=== PATIENT | male | born 1985 | race African-American/Black ===

== ENCOUNTER 2022-01-12 19:20 | Emergency (ER) | payer OTHER, SELFPAY ==
[2022-01-12] MEDS ORDERED: Ketorolac Tromethamine 30 MG/ML VIAL ONE (21:25)
[2022-01-12] MEDS ORDERED: Cyclobenzaprine 10 MG TAB ONE (21:26)
== END 2022-01-12 21:28 | disposition home or self-care (01) ==
LOC: CSHERS 19:20
DX: S16.1XXA Strain of muscle, fascia and tendon at neck level, initial encounter (principal); V89.2XXA Person injured in unspecified motor-vehicle accident, traffic, initial encounter
CPT/HCPCS: 96372; 99283; J1885

== ENCOUNTER 2022-01-29 06:50 | Emergency (ER) | payer SELFPAY ==
[2022-01-29] MEDS ORDERED: Ketorolac Tromethamine 30 MG/ML VIAL ONE (07:36)
== END 2022-01-29 07:55 | disposition home or self-care (01) ==
LOC: CSHERS 06:50
DX: M54.50 Low back pain, unspecified (principal); M54.6 Pain in thoracic spine; F17.210 Nicotine dependence, cigarettes, uncomplicated
CPT/HCPCS: 96372; 99283; J1885